=== PATIENT | male | born 1995 | race Caucasian/White ===

== ENCOUNTER 2017-05-08 05:32 | Emergency (ER) | payer OTHER ==
--- NOTE | ~2017-05-08 | ER ---
PATIENT'S NAME: ANTONIO NOGUERA [facility] AGE: 21 Y [address] ROOM: [place] [address] LOCATION: [facility] ADMIT DATE: 05/08/2017 ER/Outpatient Report DISCHARGE DATE: 05/08/2017 FAMILY PHYSICIAN: Physician, Unknown ATTENDING PHYSICIAN: Antonio Latif HISTORY OF PRESENT ILLNESS: I saw this patient after hand-off from Dr. Latif, please see his dictation for HPI. Briefly, Mr. Noguera was conversing with his significant other when he was backing away. He reportedly tripped and fell down a few stairs, the exact number is unclear. He denies loss of consciousness. Denies striking his head, but he did have severe pain in his shoulder. He denies any alcohol or drug use. Denies any medical history or medical issues. He is a smoker. PHYSICAL EXAMINATION: VITAL SIGNS: Reviewed. EXTREMITIES: Briefly, on exam, grossly unremarkable other than left shoulder deformity and contusion to the left elbow. LABORATORY AND X-RAY DATA: The x-ray reveals anterior shoulder dislocation, anterior-inferior. Elbow films are unremarkable, per my review. EMERGENCY DEPARTMENT COURSE: The patient was deemed to be appropriate for sedation. Anesthesia was asked to provide sedation which was done with propofol. The patient tolerated that well. After verbal consent was obtained, sedation was initiated, and I performed closed reduction of a dislocated left shoulder with traction and external and then internal rotation. The shoulder relocated quite easily. It did pop out again with some range of motion exercises. He was placed in a shoulder immobilizer. He recovered well, and his pain was markedly decreased. He was able to fire his deltoid, make thumbs up, make okay sign, and endorsed normal sensation throughout his hand after the reduction. I discussed the case with Dr. Vera, orthopedic surgeon, and the patient is to contact them for followup within the next few days at his earliest convenience. Work as tolerated as long as he can wear the sling. Tylenol and ibuprofen for discomfort. Return if there is any numbness or tingling. All questions were answered, and the patient was discharged in good condition. MITCH HUGHES MD PATIENT'S NAME: ANTONIO NOGUERA [facility] AGE: 21 Y [address] ROOM: [place] [address] LOCATION: [facility] ADMIT DATE: 05/08/2017 ER/Outpatient Report DISCHARGE DATE: 05/08/2017 FAMILY PHYSICIAN: Physician, Unknown ATTENDING PHYSICIAN: Antonio Latif JH/careyl /[id number] d: 05/08/17 1725 t: 05/13/17 0640, OUTPATIENT REPORT
--- NOTE | ~2017-05-08 | ER ---
PATIENT'S NAME: ANTONIO NOGUERA [facility] AGE: 21 Y [address] ROOM: [place] [address] LOCATION: [facility] ADMIT DATE: 05/08/2017 ER/Outpatient Report DISCHARGE DATE: 05/08/2017 FAMILY PHYSICIAN: Physician, Unknown ATTENDING PHYSICIAN: Antonio Latif Admission date and time documented in the medical record. I saw the patient at 0540 hours. CHIEF COMPLAINT: Fall. HISTORY OF PRESENT ILLNESS: The patient is a 21-year-old male, who fell backwards down some stairs landing on his left shoulder. Denies hitting his head or losing consciousness. No head pain; eyes, ears, nose, throat, neck, or spine pain. No chest pain or shortness of breath. No abdominal pain, nausea, vomiting, or diarrhea. No incontinence of stool or urine. He has pain in his left shoulder down to his left elbow, otherwise no other extremity pain or injury. He does supinate, pronate, flex and extend his wrist and his fingers okay. No open wounds. No recent coughs, colds, flus, fever, chills, or sweats. No lightheadedness or dizziness, did not lose consciousness. No skin eruptions or rash. No history of neuro changes, psych issues, endocrine problems. HOME MEDICATIONS: None. ALLERGIES: NONE. SOCIAL HISTORY: The patient smokes 2 packs of cigarettes a day, nondrinker. SIGNIFICANT PAST MEDICAL HISTORY: Tobacco abuse, otherwise negative. OPERATIONS: None. REVIEW OF SYSTEMS: All systems reviewed by me are negative with the exception of those discussed in the history of the present illness. PHYSICAL EXAMINATION: VITAL SIGNS: Temperature 98.7, pulse 101, respirations 18, blood pressure PATIENT'S NAME: ANTONIO NOGUERA [facility] AGE: 21 Y [address] ROOM: [place] [address] LOCATION: [facility] ADMIT DATE: 05/08/2017 ER/Outpatient Report DISCHARGE DATE: 05/08/2017 FAMILY PHYSICIAN: Physician, Unknown ATTENDING PHYSICIAN: Antonio Latif 155/83, O2 sat on room air is 100%. HEAD: Normocephalic. No abrasion, contusion, laceration, or swelling of the scalp or face. EYES, EARS, NOSE, THROAT: Clear. NECK: No tenderness. No nuchal rigidity. No thyromegaly or cervical adenopathy. SPINE: Negative. LUNGS: Clear. HEART: Regular. ABDOMEN: Soft, nontender. Good bowel tones. EXTREMITIES: The patient has tenderness in his left shoulder down into his left elbow. Just on inspection, it looks like a deformity consistent with dislocation of the left shoulder. No other extremity injuries or abnormalities. NEUROVASCULAR: Appears to be intact. SKIN: Clear. EMERGENCY DEPARTMENT COURSE: Did start an IV saline lock. We will give him Dilaudid 1 mg IV plus Zofran 4 mg IV. We will obtain x-ray of his left shoulder, left elbow, results pending. IMPRESSION: 1. Fall. 2. Left shoulder pain, suspected dislocated left shoulder. PLAN: Awaiting x-rays. Transferred the patient's care over to Dr. Murray at shift change. I asked Dr. Murray to follow up with the x-ray results, final diagnosis, and treatment plan. MD TIAN DIMAS/modl /[id number] d: 05/08/17 0759 t: 05/10/17 1829, OUTPATIENT REPORT
== END 2017-05-08 07:47 | disposition disaster alternative care site (69) ==
LOC: GACC 05:32
PROC: 0RSKXZZ Reposition Left Shoulder Joint, External Approach (ICD-10-PCS; principal; 2017-05-08)
DX: S43.015A Anterior dislocation of left humerus, initial encounter (principal); F17.210 Nicotine dependence, cigarettes, uncomplicated; W10.9XXA Fall (on) (from) unspecified stairs and steps, initial encounter
CPT/HCPCS: J1170; J2405; J7030

== ENCOUNTER → 2017-05-08 | Outpatient (CLI) | payer OTHER ==
[~2017-05-08] MED LIST: VISTARIL50 MG PO
== END | disposition disaster alternative care site (69) ==
LOC: GAMB 05:21
DX: S49.92XA Unspecified injury of left shoulder and upper arm, initial encounter (principal); W17.89XA Other fall from one level to another, initial encounter; Y93.01 Activity, walking, marching and hiking; Y92.9 Unspecified place or not applicable; Y99.9 Unspecified external cause status
CPT/HCPCS: A0425; A0429

== ENCOUNTER 2017-05-23 19:01 | Emergency (ER) | payer OTHER ==
--- NOTE | ~2017-05-23 | ER ---
PATIENT'S NAME: ANTONIO NOGUERA [facility] AGE: 21 Y [address] ROOM: [place] [address] LOCATION: [facility] ADMIT DATE: 05/23/2017 ER/Outpatient Report DISCHARGE DATE: 05/23/2017 FAMILY PHYSICIAN: PHYSICIAN, NO ATTENDING PHYSICIAN: Nirmal Isbell Time of Patient's Arrival: 1901 hours. Time of Patient's Evaluation: 1903 hours. CHIEF COMPLAINT: Dislocated left shoulder. HISTORY OF PRESENT ILLNESS: This is a 21-year-old male who presents to the ER. He states he re-injured his left shoulder again approximately 5 minutes prior to arrival. The patient states he was messing around with a friend and felt his shoulder pop out. He states he recently had a left shoulder dislocation a few weeks ago and had to have it put back in here in the emergency room. He states he had no other injury this evening. He has not followed up with an orthopedic from his last shoulder dislocation. ALLERGIES: NO KNOWN ALLERGIES. MEDICATIONS: None. PAST MEDICAL HISTORY: He has had surgery to his bilateral wrists. SOCIAL HISTORY: He does smoke cigarettes and drinks alcohol occasionally. REVIEW OF SYSTEMS: CONSTITUTIONAL: Denies any change in weight or fatigue. MUSCULOSKELETAL: He is complaining of left shoulder pain. HEMATOLOGIC: No easy bruising or bleeding. SKIN: No lesions or rashes. PHYSICAL EXAMINATION: VITAL SIGNS: Height 5 feet 5 inches stated, weight 85.7 kg taken, blood pressure is 130/80, pulse 131, respirations 16, temperature 99.2 degrees tympanically, and saturations 97% on room air. [place] Coma Score is 15. GENERAL: Alert, slightly anxious-appearing 21-year-old, in [id number] distress. PATIENT'S NAME: ANTONIO NOGUERA [facility] AGE: 21 Y [address] ROOM: [place], [place] [address] LOCATION: [facility] ADMIT DATE: 05/23/2017 ER/Outpatient Report DISCHARGE DATE: 05/23/2017 FAMILY PHYSICIAN: PHYSICIAN, NO ATTENDING PHYSICIAN: Nirmal Isbell LUNGS: Clear to auscultation bilaterally. HEART: Tachycardic. Normal rhythm. EXTREMITIES: He has decreased range of motion of his left upper extremity secondary to pain in his left shoulder. He has deformity noted to his left shoulder. He has no ecchymosis, erythema, or contusions noted anywhere. He has full range of motion in all other limbs. NEUROLOGIC: Cranial nerves 2 through 12 grossly intact. Gait is steady without assistance. SKIN: Warm, dry, and intact. LABORATORY DATA: None were done. X-RAYS: X-rays of the left shoulder shows an anterior shoulder dislocation. IMPRESSION: Left shoulder dislocation. ASSESSMENT AND PLAN: I did discuss the patient's care with Dr. Isbell. Dr. Isbell also evaluated the patient. Please see his dictation in regard to the shoulder reduction. We did have the patient's informed consent for closed reduction. He did receive a 0.5 mg of Dilaudid IV for his pain. He did recover nicely. We did place him in a shoulder immobilizer. We will dismiss him to home with a prescription for [place] to use as directed and he needs a followup with his orthopedic of choice for followup care in the next 2-3 days. The patient understands and agrees with care. SHERRY TATE PA-C FOR NIRMAL ISBELL, DO VILLAGOMEZ/arun /[id number] d: t: 05/24/17 0117, OUTPATIENT REPORT
--- NOTE | ~2017-05-23 | ER ---
PATIENT'S NAME: ANTONIO NOGUERA [facility] AGE: 21 Y [address] ROOM: [place] [address] LOCATION: [facility] ADMIT DATE: 05/23/2017 ER/Outpatient Report DISCHARGE DATE: 05/23/2017 FAMILY PHYSICIAN: PHYSICIAN, NO ATTENDING PHYSICIAN: Vipul Isbell ADDENDUM: This is an addendum to Jacinto Bal's dictation. Please see her dictation for chief complaint, history of present illness, past medical history, past surgical history. The patient was diagnosed with anterior shoulder dislocation. I did see and evaluate the patient, evaluated the patient's x-ray. I did discuss risks and benefits to closed reduction of this left shoulder. He does wish to proceed. The patient did undergo a hematoma block to the left shoulder with a 1:1 combination of bupivacaine and lidocaine. The patient was given 1 mg of Dilaudid IV. Attempted reduction using Reich technique was initiated. This was unsuccessful as the patient was unable to tolerate the pain. Thus, we did contact Anesthesia. Rajesh with nurse anesthesia did see and evaluate the patient. The patient is sedated with propofol. Please see his dictation note. The patient's shoulder is reduced with traction and internal rotation followed by external rotation with audible pop noted. Postreduction x-rays were reviewed by myself. It does reveal successful reduction of the left anterior shoulder dislocation. DO PRABHU DORMAN/careyl /[id number] d: t: 05/24/17 0919, OUTPATIENT REPORT
== END 2017-05-23 21:02 | disposition disaster alternative care site (69) ==
LOC: GACC 19:01
PROC: 0RSKXZZ Reposition Left Shoulder Joint, External Approach (ICD-10-PCS; principal; 2017-05-23)
DX: S43.015A Anterior dislocation of left humerus, initial encounter (principal); F17.210 Nicotine dependence, cigarettes, uncomplicated; Z98.890 Other specified postprocedural states; X58.XXXA Exposure to other specified factors, initial encounter
CPT/HCPCS: J1170; J2250; J7030